=== PATIENT | female | born 2000 | race African-American/Black ===

== ENCOUNTER 2022-11-12 01:20 | Emergency (ER) | payer MEDICAID ==
[~2022-11-12] VITALS: Ht 157.5 cm; Wt 47.0 kg
[2022-11-12 02:05] LABS: Albumin 4.1 g/dL (3.4-5.0); BUN/Creatinine Ratio 29.9; Calcium 9.5 mg/dL (8.5-10.1); Potassium 3.8 mmol/L (3.5-5.1)
[2022-11-12 02:06] LABS: Bilirubin, Total 0.9 mg/dL (0.2-1.0); Total Protein 7.3 g/dL (6.4-8.2)
[2022-11-12 02:22] LABS: Basophils # (auto) 0 10 ^3/uL (0-0.2); Basophils % (auto) 0.4 % (0.0-2.0); Eosinophils # (auto) 0.2 10 ^3/uL (0-0.8); Eosinophils % (auto) 3.4 % (0.0-7.0); Hematocrit 39.7 % (36.0-46.0); Lymphocytes # (auto) 2.9 10 ^3/uL (0.4-5.4); Lymphocytes % (auto) 39.7 % (10.0-50.0); Mean Corpuscular Hemoglobin 28.3 pg (28.0-32.0); Mean Corpuscular Hgb Conc. 32.7 g/dL (32.0-36.0); Mean Corpuscular Volume 86.6 fL (80.0-100.0); Monocytes # (auto) 0.6 10 ^3/uL (0-1.3); Monocytes % (auto) 7.5 % (0.0-12.0); Neutrophils # (auto) 3.6 10 ^3/uL (1.6-8.6); Nucleated Red Blood Cells % 0.1 %; Red Blood Cells 4.58 10^6/uL (4.0-5.20); Red Cell Distribution Width 13.7 % (11.8-14.3); White Blood Cell 7.4 10^3/uL (4.4-10.8)
[2022-11-12 04:53] VITALS: BP 135/64
[2022-11-12] MEDS ORDERED: IOHEXOL 350 MG/ML 100ML IJ ONE (06:06)
== END 2022-11-12 04:53 | disposition home or self-care (01) ==
LOC: ER 01:20
DX: R07.89 Other chest pain (principal)
CPT/HCPCS: 36415; 71275; 80053; 84484; 85025; 93005; 99285; Q9967